=== PATIENT | male | born 1970 | race Caucasian/White ===

== ENCOUNTER 2017-09-29 11:39 | Inpatient (IN) | payer OTHER ==
[~2017-09-29] VITALS: Ht 177.8 cm; Wt 80.0 kg
[2017-09-29] MEDS ORDERED: SERT50TA PO (12:19)
[2017-09-29] MEDS ORDERED: SODIUM CHLORIDE FLUSH 10ML SYR IVF ONE (12:30)
[2017-09-29 12:47] LABS: BASOPHILS # (AUTO) 0.02 x10^3/uL (0-0.1); BASOPHILS % (AUTO) 0 % (0-1); EOSINOPHILS # (AUTO) 0.15 x10^3/uL (0-0.4); EOSINOPHILS % (AUTO) 2 % (1-7); HCT (SEDRATE) 42.4 % (39.2-51.8); LYMPHOCYTES # (AUTO) 1.16 x10^3/uL (1-3.4); LYMPHOCYTES % (AUTO) 13 % (22-44); MD NO; MEAN CORPUSCULAR HEMOGLOBIN 31.2 pg (27.5-34.5); MEAN CORPUSCULAR VOLUME 91.7 fL (81-97); MEAN PLATELET VOLUME 7.6 fL (7.4-10.4); MONOCYTES # (AUTO) 0.56 x10^3/uL (0.2-0.8); MONOCYTES % (AUTO) 6 % (2-9); NEUTROPHILS # (AUTO) 7.12 x10^3/uL (1.8-6.8); NEUTROPHILS % (AUTO) 79 % (42-75); PLATELET COUNT 348 x10^3/uL (130-400); RED BLOOD COUNT 4.63 x10^6/uL (4.38-5.82); RED CELL DISTRIBUTION WIDTH 12.8 % (9.4-14.8)
[2017-09-29 12:59] LABS: ALBUMIN 4.1 g/dL (3.4-5.0); ANION GAP 9 mmol/L (5-15); CHLORIDE 103 mmol/L (98-107); CREATININE 0.82 mg/dL (0.7-1.3)
[2017-09-29 13:33] LABS: SEDIMENTATION RATE 75 mm/hr (0-10)
[2017-09-29] MEDS ORDERED: DOCUSATE 100 MG CAPSULE PO PRN (15:00)
[2017-09-29] MEDS ORDERED: VANCOMYCIN PER PHARMACY MC PRN (15:00)
[2017-09-29] MEDS ORDERED: hydrALAzine 20 MG/ML, 1ML IVPush PRN (15:00)
[2017-09-29] MEDS ORDERED: CEFTRIAXONE PMX 2GM/50ML 50 ML IV SCH (15:00)
[2017-09-29] MEDS ORDERED: METOCLOPRAMIDE 5 MG/ML, 2ML IVPush PRN (15:00)
[2017-09-29] MEDS ORDERED: SODIUM CHLORIDE FLUSH 10ML SYR IVF PRN (15:30)
[2017-09-29] MEDS ORDERED: PHARMACOKINETIC CONSULTATION MC ONE (17:00)
[2017-09-29] MEDS ORDERED: PHARMACOKINETIC MONITORING MC PRN (17:00)
[2017-09-29] MEDS: D5%-LACTATED RINGERS 1,000 ML IV SCH (17:24)
[2017-09-29] MEDS: CEFTRIAXONE 2 GM in DEXTROSE 5% 50 ML IV SCH (17:24)
[2017-09-29] MEDS ORDERED: VANCOMYCIN 1,000 MG ONE ×2 (18:21→19:46)
[2017-09-29] MEDS ORDERED: BACITRACIN 50,000 UNIT ONE ×2 (18:21→19:33)
[2017-09-29] MEDS ORDERED: KETOROLAC 60 MG/2 ML ONE (18:30)
[2017-09-29] MEDS ORDERED: EPINEPHRINE 1 MG/ML, 1ML ONE (18:30)
[2017-09-29] MEDS ORDERED: TRANEXAMIC ACID 100 MG/ML, 10ML ONE ×2 (18:30)
[2017-09-29] MEDS ORDERED: ROPIvacaine/PF 0.2%, 20 ML ONE (18:30)
[2017-09-29] MEDS ORDERED: MIDAZOLAM 1 MG/ML, 2ML ONE ×2 (18:40→20:54)
[2017-09-29] MEDS ORDERED: FENTANYL PF 250 MCG/5ML ONE (18:40)
[2017-09-29] MEDS ORDERED: LIDOCAINE GEL 2%, 5ML ONE (18:41)
[2017-09-29] MEDS ORDERED: ROCURONIUM 10MG/ML,5ML ONE (18:42)
[2017-09-29] MEDS ORDERED: ACETAMINOPHEN 500 MG TABLET ONE (18:46)
[2017-09-29] MEDS ORDERED: OxyconTIN ER 10 MG TAB.ER ONE (18:47)
[2017-09-29] MEDS ORDERED: GABAPENTIN 300 MG CAPSULE ONE (18:47)
[2017-09-29] MEDS ORDERED: OXYcodone 5 MG/5 ML ORAL.SOL UDC PO PRN (19:30)
[2017-09-29] MEDS ORDERED: MIDAZOLAM 1 MG/ML, 2ML IV PRN (19:30)
[2017-09-29] MEDS ORDERED: METOCLOPRAMIDE 5 MG/ML, 2ML IV PRN (19:30)
[2017-09-29] MEDS ORDERED: ALBUTEROL/IPRATROPIUM 2.5MG/0.5MG, 3 ML NPPB PRN (19:30)
[2017-09-29] MEDS ORDERED: ONDANSETRON 2MG/ML, 2ML IVPush PRN (19:30)
[2017-09-29] MEDS ORDERED: PROMETHAZINE 25 MG/ML, 1ML IV PRN (19:30)
[2017-09-29] MEDS ORDERED: DIAZEPAM 5 MG/ML, 2ML IVPush PRN (19:30)
[2017-09-29] MEDS ORDERED: LABETALOL 5MG/ML, 20ML IV PRN (19:30)
[2017-09-29] MEDS ORDERED: MEPERIDINE/PF 25MG/0.5ML IVPush PRN (19:30)
[2017-09-29] MEDS ORDERED: hydrALAzine 20 MG/ML, 1ML IV PRN (19:30)
[2017-09-29] MEDS ORDERED: LORazepam 2 MG/ML, 1ML IVPush PRN (19:30)
[2017-09-29] MEDS: VANCOMYCIN 1,600 MG in SODIUM CHLORIDE 0.9% 250 ML IV SCH (20:00)
[2017-09-29] MEDS ORDERED: CEFAZOLIN 1,000 MG ONE (20:07)
[2017-09-29] MEDS ORDERED: DEXAMETHASONE 4 MG/ML, 1ML ONE (20:07)
[2017-09-29] MEDS ORDERED: ONDANSETRON 2MG/ML, 2ML ONE (20:07)
[2017-09-29] MEDS ORDERED: PROPOFOL 10 MG/ML, 20ML ONE (20:07)
[2017-09-29] MEDS ORDERED: MORPHINE SULFATE 4 MG/ML, 1ML ONE ×2 (20:11→20:31)
[2017-09-29] MEDS ORDERED: FENTANYL PF 100 MCG/2ML ONE ×2 (20:11→20:31)
[2017-09-29] MEDS ORDERED: MEPERIDINE/PF 25MG/0.5ML ONE (20:13)
[2017-09-29] MEDS: FENTANYL PF 100 MCG/2ML IV PRN ×4 (20:20→20:50)
[2017-09-29] MEDS: morphine SULFATE 10 MG/ML, 1ML IV PRN ×4 (20:25→21:15)
[2017-09-29] MEDS ORDERED: TRANEXAMIC ACID 1,500 MG in SODIUM CHLORIDE 0.9% 100 ML IV ONE (21:00)
[2017-09-29] MEDS: ASPIRIN 81 MG TABLET CHEW PO SCH (22:19)
[2017-09-30] VITALS: BP 113/74
[2017-09-30 03:49] VITALS: BP 102/62
[2017-09-30 05:22] LABS: CHLORIDE 108 mmol/L (98-107)
[2017-09-30 05:29] LABS: BASOPHILS % (AUTO) 0 % (0-1); EOSINOPHILS % (AUTO) 0 % (1-7); LYMPHOCYTES # (AUTO) 0.56 x10^3/uL (1-3.4); LYMPHOCYTES % (AUTO) 6 % (22-44); MD NO; MEAN CORPUSCULAR HEMOGLOBIN 31.6 pg (27.5-34.5); MEAN CORPUSCULAR HGB CONC 34.1 g/dL (33.2-36.2); MEAN CORPUSCULAR VOLUME 92.6 fL (81-97); MEAN PLATELET VOLUME 8.1 fL (7.4-10.4); MONOCYTES # (AUTO) 0.14 x10^3/uL (0.2-0.8); MONOCYTES % (AUTO) 1 % (2-9); NEUTROPHILS % (AUTO) 93 % (42-75); PLATELET COUNT 327 x10^3/uL (130-400); RED BLOOD COUNT 3.89 x10^6/uL (4.38-5.82); RED CELL DISTRIBUTION WIDTH 12.6 % (9.4-14.8)
[2017-09-30 05:30] LABS: ANION GAP 8 mmol/L (5-15); CALCIUM 8.2 mg/dL (8.5-10.1); CREATININE 0.91 mg/dL (0.7-1.3)
[2017-09-30] MEDS: PANTOPROZOLE 40MG TABLET PO SCH (06:14)
[2017-09-30 06:45] VITALS: BP 107/66
[2017-09-30] MEDS: VANCOMYCIN 1,600 MG in SODIUM CHLORIDE 0.9% 250 ML IV SCH ×2 (07:12→19:34)
[2017-09-30] MEDS: ASPIRIN 81 MG TABLET CHEW PO SCH ×2 (08:18→21:22)
[2017-09-30] MEDS: SERTRALINE 50MG TABLET PO SCH (08:18)
[2017-09-30] MEDS: MELOXICAM 15 MG TABLET PO SCH (08:18)
[2017-09-30] MEDS: ACETAMINOPHEN 500 MG TABLET PO SCH ×3 (08:20→21:22)
[2017-09-30] MEDS: D5%-LACTATED RINGERS 1,000 ML IV SCH ×2 (12:15→20:15)
[2017-09-30] MEDS: OXYcodone 5 MG/5 ML ORAL.SOL UDC PO PRN ×3 (13:43→21:23)
[2017-09-30 14:52] VITALS: BP 126/81
[2017-09-30] MEDS: CEFTRIAXONE 2 GM in DEXTROSE 5% 50 ML IV SCH (16:18)
[2017-09-30] MEDS: metroNIDAZOLE 500 MG TABLET PO SCH (17:21)
[2017-09-30 19:52] VITALS: BP 128/80
[2017-10-01] MEDS: metroNIDAZOLE 500 MG TABLET PO SCH ×2 (01:20→08:25)
[2017-10-01] MEDS: OXYcodone 5 MG/5 ML ORAL.SOL UDC PO PRN ×2 (01:20→05:11)
[2017-10-01 02:55] VITALS: BP 124/83
[2017-10-01] MEDS: D5%-LACTATED RINGERS 1,000 ML IV SCH (04:15)
[2017-10-01 06:53] VITALS: BP 120/77
[2017-10-01 07:00] LABS: MEAN CORPUSCULAR HEMOGLOBIN 30.9 pg (27.5-34.5); MEAN CORPUSCULAR HGB CONC 33.4 g/dL (33.2-36.2); MEAN CORPUSCULAR VOLUME 92.5 fL (81-97); MEAN PLATELET VOLUME 7.7 fL (7.4-10.4); PLATELET COUNT 302 x10^3/uL (130-400); RED BLOOD COUNT 3.51 x10^6/uL (4.38-5.82); RED CELL DISTRIBUTION WIDTH 12.5 % (9.4-14.8)
[2017-10-01 07:05] LABS: ANION GAP 6 mmol/L (5-15); CALCIUM 8.1 mg/dL (8.5-10.1); CHLORIDE 109 mmol/L (98-107)
[2017-10-01 07:15] LABS: CREATININE 0.67 mg/dL (0.7-1.3); VANCOMYCIN,RANDOM 24.9 mcg/mL
[2017-10-01 07:22] LABS: BASOPHILS # (AUTO) 0.04 x10^3/uL (0-0.1); BASOPHILS % (AUTO) 0 % (0-1); EOSINOPHILS # (AUTO) 0.11 x10^3/uL (0-0.4); EOSINOPHILS % (AUTO) 1 % (1-7); LYMPHOCYTES # (AUTO) 2.17 x10^3/uL (1-3.4); LYMPHOCYTES % (AUTO) 19 % (22-44); MD SCAN; MONOCYTES # (AUTO) 0.93 x10^3/uL (0.2-0.8); MONOCYTES % (AUTO) 8 % (2-9); NEUTROPHILS # (AUTO) 8.29 x10^3/uL (1.8-6.8); NEUTROPHILS % (AUTO) 72 % (42-75)
[2017-10-01 07:57] LABS: HCT (SEDRATE) 32.5 % (39.2-51.8)
[2017-10-01] MEDS: VANCOMYCIN 1,600 MG in SODIUM CHLORIDE 0.9% 250 ML IV SCH (08:24)
[2017-10-01] MEDS: PANTOPROZOLE 40MG TABLET PO SCH (08:25)
[2017-10-01] MEDS: ACETAMINOPHEN 500 MG TABLET PO SCH ×3 (08:25→20:40)
[2017-10-01] MEDS: SERTRALINE 50MG TABLET PO SCH (08:25)
[2017-10-01] MEDS: MELOXICAM 15 MG TABLET PO SCH (08:25)
[2017-10-01] MEDS: ASPIRIN 81 MG TABLET CHEW PO SCH ×2 (08:25→20:40)
[2017-10-01 13:49] VITALS: BP 131/79
[2017-10-01] MEDS ORDERED: ERTAPENEM 1 GM in SODIUM CHLORIDE 0.9% 50 ML IV SCH (15:00)
[2017-10-01] MEDS: ERTAPENEM 1 GM in SODIUM CHLORIDE 0.9% 100 ML IV SCH (16:12)
[2017-10-01 20:54] VITALS: BP 124/81
[2017-10-02] MEDS ORDERED: VANCOMYCIN 1,600 MG in SODIUM CHLORIDE 0.9% 250 ML IV SCH (02:00)
[2017-10-02 02:30] VITALS: BP 135/87
[2017-10-02] MEDS: MORPHINE SULFATE 4 MG/ML, 1ML IVPush PRN ×2 (02:49→06:49)
[2017-10-02 06:57] VITALS: BP 138/90
[2017-10-02] MEDS: MELOXICAM 15 MG TABLET PO SCH (07:36)
[2017-10-02] MEDS: SERTRALINE 50MG TABLET PO SCH (07:36)
[2017-10-02] MEDS: PANTOPROZOLE 40MG TABLET PO SCH (07:36)
[2017-10-02] MEDS: ASPIRIN 81 MG TABLET CHEW PO SCH (07:37)
[2017-10-02] MEDS: ACETAMINOPHEN 500 MG TABLET PO SCH ×2 (07:37→14:15)
[2017-10-02] MEDS ORDERED: BISACODYL 5 MG EC TABLET PO PRN (08:00)
[2017-10-02] MEDS ORDERED: DOCUSATE CALCIUM 240 MG CAPSULE PO SCH (09:00)
[2017-10-02] MEDS ORDERED: SODIUM CHLORIDE FLUSH 10ML SYR IVF SCH (11:30)
[2017-10-02] MEDS ORDERED: ASPI-515 PO (13:00)
[2017-10-02] MEDS ORDERED: PANT40TA5 PO (13:00)
[2017-10-02] MEDS ORDERED: DOCU240C53 PO (13:00)
[2017-10-02] MEDS ORDERED: MELO15TA24 PO (13:00)
[2017-10-02] MEDS ORDERED: ERTA1VIA IV (13:01)
[2017-10-02 13:20] VITALS: BP 117/73
[2017-10-02] MEDS ORDERED: TRAM50TA2 PO ×2 (13:24→16:00)
[2017-10-02] MEDS ORDERED: OXYC5SOL8 PO (13:24)
[2017-10-02] MEDS: ERTAPENEM 1 GM in SODIUM CHLORIDE 0.9% 100 ML IV SCH (14:14)
[2017-10-02 14:23] VITALS: BP 121/75
[2017-10-03 13:38] LABS: ANA SCREEN NEGATIVE (Negative)
== END 2017-10-02 16:11 | disposition home or self-care (01) | DRG 467 ==
LOC: ED 13:00 → EDIP 14:46 → 4NOR 16:31 → DCLOUNGE 10-02 15:55
PROVIDERS: ADMIT Internal Medicine; ATTEND Internal Medicine
PROC: 0SUS09Z Supplement Left Hip Joint, Femoral Surface with Liner, Open Approach (ICD-10-PCS; 2017-09-29)
PROC: 0QBC0ZZ Excision of Left Lower Femur, Open Approach (ICD-10-PCS; 2017-09-29)
PROC: 0SPB09Z Removal of Liner from Left Hip Joint, Open Approach (ICD-10-PCS; principal; 2017-09-29 18:30)
PROC: 02HV33Z Insertion of Infusion Device into Superior Vena Cava, Percutaneous Approach (ICD-10-PCS; 2017-10-02)
PROC: B5181ZA Fluoroscopy of Superior Vena Cava using Low Osmolar Contrast, Guidance (ICD-10-PCS; 2017-10-02)
PROC: B548ZZA Ultrasonography of Superior Vena Cava, Guidance (ICD-10-PCS; 2017-10-02)
DX: T84.52XA Infection and inflammatory reaction due to internal left hip prosthesis, initial encounter (principal); M00.9 Pyogenic arthritis, unspecified; Z96.642 Presence of left artificial hip joint; Y83.1 Surgical operation with implant of artificial internal device as the cause of abnormal reaction of the patient, or of later complication, without mention of misadventure at the time of the procedure; I10 Essential (primary) hypertension; I73.00 Raynaud's syndrome without gangrene; Z79.82 Long term (current) use of aspirin; Z83.3 Family history of diabetes mellitus; Y92.89 Other specified places as the place of occurrence of the external cause; Z79.899 Other long term (current) drug therapy
CPT/HCPCS: 36415; 36569; 72170; 76937; 77001; 80048; 80202; 82040; 83605; 84145; 84550; 85025; 85651; 86038; 86140; 86141; 87015; 87040; 87070; 87075; 87102; 87116; 87176; 87205; 87206; 93005; 99285; J0171; J0690; J1100; J1335; J1885; J2175; J2250; J2405; J2704; J2795; J3010; J3370; C1751; C1776; J2270; J2765; J7050; J7121

== ENCOUNTER 2017-12-29 00:37 | Emergency (ER) | payer OTHER ==
[~2017-12-29] VITALS: Ht 177.8 cm; Wt 90.0 kg
[~2017-12-29 00:37] MED LIST: ASPI-515 PO; DOCU240C53 PO; ERTA1VIA IV; MELO15TA24 PO; OXYC5SOL8 PO; PANT40TA5 PO; SERT50TA PO; TRAM50TA2 PO
[2017-12-29 00:50] VITALS: BP 136/86
== END 2017-12-29 01:07 | disposition home or self-care (01) ==
LOC: ED 01:06
DX: S00.03XA Contusion of scalp, initial encounter (principal); X58.XXXA Exposure to other specified factors, initial encounter; Y93.89 Activity, other specified; Y92.89 Other specified places as the place of occurrence of the external cause; Y99.8 Other external cause status
CPT/HCPCS: 99281

== ENCOUNTER 2018-04-26 15:53 | Inpatient (IN) | payer OTHER ==
[~2018-04-26] VITALS: Ht 177.8 cm; Wt 76.3 kg
[2018-04-27] MEDS ORDERED: ZIPRASIDONE 20 MG INJ IM ONE ×4 (05:19→10:00)
[2018-04-27 10:46] LABS: BASOPHILS # (AUTO) 0.01 x10^3/uL (0-0.1); BASOPHILS % (AUTO) 0 % (0-1); EOSINOPHILS # (AUTO) 0.04 x10^3/uL (0-0.4); EOSINOPHILS % (AUTO) 0 % (1-7); LYMPHOCYTES # (AUTO) 1.34 x10^3/uL (1-3.4); LYMPHOCYTES % (AUTO) 13 % (22-44); MD NO; MEAN CORPUSCULAR HEMOGLOBIN 31.2 pg (27.5-34.5); MEAN CORPUSCULAR HGB CONC 34.1 g/dL (33.2-36.2); MEAN CORPUSCULAR VOLUME 91.7 fL (81-97); MEAN PLATELET VOLUME 8.4 fL (7.4-10.4); MONOCYTES # (AUTO) 0.73 x10^3/uL (0.2-0.8); MONOCYTES % (AUTO) 7 % (2-9); NEUTROPHILS # (AUTO) 8.33 x10^3/uL (1.8-6.8); NEUTROPHILS % (AUTO) 80 % (42-75); PLATELET COUNT 307 x10^3/uL (130-400); RED BLOOD COUNT 4.87 x10^6/uL (4.38-5.82); RED CELL DISTRIBUTION WIDTH 12.9 % (9.4-14.8)
[2018-04-27 10:47] LABS: ALBUMIN 4.1 g/dL (3.4-5.0); ANION GAP 10 mmol/L (5-15); CALCIUM 9.3 mg/dL (8.5-10.1); CHLORIDE 108 mmol/L (98-107)
[2018-04-27 10:49] LABS: ALANINE AMINOTRANSFERASE 25 U/L (12-78); ALKALINE PHOSPHATASE 80 U/L (45-117); CREATININE 0.83 mg/dL (0.7-1.3); TOTAL PROTEIN 7.8 g/dL (6.4-8.2)
[2018-04-27 10:56] LABS: SALICYLATE LEVEL < 1.7 mg/dL (2.8-20.0)
[2018-04-27 10:58] LABS: ACETAMINOPHEN < 2 mcg/mL (10-30)
[2018-04-27] MEDS ORDERED: LORazepam 1MG TABLET ONE (11:00)
[2018-04-27] MEDS: LORazepam 1MG TABLET PO ONE (11:30)
[2018-04-27] MEDS ORDERED: LORazepam 2 MG/ML, 1ML ONE (11:38)
[2018-04-27] MEDS ORDERED: LORazepam 2 MG/ML, 1ML IVPush ONE (12:00)
[2018-04-27 15:40] LABS: MICROSCOPIC NOT IND
[2018-04-27 15:47] LABS: CULTURE INDICATED? NO
[2018-04-27 15:49] LABS: AMPHETAMINE SCREEN, URINE Negative (Negative); BARBITURATE SCREEN, URINE Negative (Negative); BENZODIAZEPINE SCREEN, URINE Negative (Negative); CANNABINOID SCREEN, URINE Negative (Negative); COCAINE SCREEN, URINE Negative (Negative); METHADONE SCREEN, URINE Negative (Negative); OPIATE SCREEN, URINE Negative (Negative)
[2018-04-27] MEDS ORDERED: IBUPROFEN 200 MG TABLET PO PRN (17:30)
[2018-04-27] MEDS ORDERED: LORazepam 2 MG/ML, 1ML IVPush PRN (17:30)
[2018-04-27] MEDS ORDERED: LORazepam 1MG TABLET PO PRN (17:30)
[2018-04-27] MEDS ORDERED: ACETAMINOPHEN 325 MG TABLET PO PRN (17:30)
[2018-04-27] MEDS: OLANZAPINE 10 MG TABLET PO SCH (17:30)
[2018-04-27] MEDS: SODIUM CHLORIDE FLUSH 10ML SYR IVF SCH (21:00)
[2018-04-28] MEDS: OLANZAPINE 10 MG TABLET PO SCH ×2 (05:30→17:07)
[2018-04-28 06:26] LABS: FREE T4 (FREE THYROXINE) 1.02 ng/dL (0.76-1.46); THYROID STIMULATING HORMONE 3.06 mIU/L (0.358-3.740)
[2018-04-28] MEDS: SODIUM CHLORIDE FLUSH 10ML SYR IVF SCH (09:00)
[2018-04-28 09:45] VITALS: BP 147/90
[2018-04-28 10:45] VITALS: BP 112/82
[2018-04-28 19:55] VITALS: BP 121/81
== END 2018-04-28 20:15 | DRG 885 ==
LOC: ED 17:25 → EDIP 04-27 17:01 → 2N 04-28 09:36
PROVIDERS: ADMIT Internal Medicine; ATTEND Internal Medicine
DX: F23 Brief psychotic disorder (principal); F31.9 Bipolar disorder, unspecified; I10 Essential (primary) hypertension; Z78.1 Physical restraint status; Z96.642 Presence of left artificial hip joint
CPT/HCPCS: 36415; 70450; 80053; 80307; 80329; 81003; 84439; 84443; 85025; 99285; J3486; G0480; J2060

== ENCOUNTER → 2018-08-14 | Outpatient (CLI) | payer OTHER | END | disposition home or self-care (01) | LOC: CFH 09:25 | PROVIDERS: ATTEND Neurological Surgery | DX: M47.812 Spondylosis without myelopathy or radiculopathy, cervical region (principal); M48.02 Spinal stenosis, cervical region; M43.22 Fusion of spine, cervical region; M25.78 Osteophyte, vertebrae | CPT/HCPCS: 72040; 72141 ==